=== PATIENT | male | born 1995 | race Caucasian/White ===

== ENCOUNTER 2019-12-20 17:02 | Outpatient (REF) | payer SELFPAY ==
[2019-12-26 00:58] LABS: SARS-CoV-2 RNA Undetected (Undetected); SARS-CoV-2 Specimen Source Nasal
== END 2019-12-20 17:22 ==
LOC: NCHCN 17:02
PROVIDERS: PCP Internal Medicine; Visit Provider Internal Medicine
DX: R05 Cough (principal); Z20.828 Contact with and (suspected) exposure to other viral communicable diseases
CPT/HCPCS: U0003

== ENCOUNTER → 2023-01-01 16:55 | Outpatient (CLI) | payer OTHER, SELFPAY ==
--- NOTE | 2023-01-01 14:24 | DI.RAD_ITS ---
Exam(s) XR WRIST LT COMPLETE EXAM: XR WRIST LT COMPLETE CLINICAL HISTORY: PAIN IN LT WRIST-[id number]. TECHNIQUE: 2D digital imaging was performed. Three views. COMPARISON: No exams were available for comparison FINDINGS: BONES: No acute fracture is present. No bony destructive lesion is seen. JOINTS: The carpal bones are normally aligned. SOFT TISSUE: Normal. IMPRESSION: Unremarkable radiographs of the left wrist. DATA REPOSITORY: RADIATION DOSE DELIVERED:
== END ==
PROVIDERS: PCP Internal Medicine; Visit Provider Nurse Practitioner Family
DX: M25.532 Pain in left wrist (principal)
CPT/HCPCS: 73110

== ENCOUNTER 2023-04-02 18:10 | Emergency (ER) | payer OTHER, SELFPAY ==
[2023-04-02 18:17] VITALS: BP 130/74; PULSE 84; RESP 16; TEMP 37; O2SAT 99
--- NOTE | 2023-04-02 18:30 | DI.RAD_ITS ---
Exam(s) XR SHOULDER RT COMPLETE 2+V XR HUMERUS RT EXAM: XR SHOULDER RT COMPLETE 2+V and XR humerus RT CLINICAL HISTORY: ran into tree snowboarding. TECHNIQUE: 2D digital imaging was performed of the right shoulder. Five images were obtained. AP, Grashey, Y-view and axillary views were obtained. COMPARISON: No priors for comparison. FINDINGS: BONES: No acute fracture is present. No bony destructive lesion is seen. JOINTS: No dislocation present. The glenohumeral and acromioclavicular joints are well maintained. SOFT TISSUE: The visualized lungs are clear. IMPRESSION: Unremarkable radiographs of the right humerus and shoulder. DATA REPOSITORY: RADIATION DOSE DELIVERED:
[2023-04-02] MEDS: Ketorolac 10 MG TAB PO (18:41)
[2023-04-02] MEDS: Lidocaine 5% Patch 1 PATCH TP (18:41)
[2023-04-02] MEDS: Cyclobenzaprine 10 MG TAB PO (18:41)
--- NOTE | 2023-04-02 18:47 | ED.GENADUL_ITS ---
HPI General Date/Time Provider Initiated Documentation: 04/02/23 18:27 . HPI Narrative: 28-year-old male presents after running into a tree with his right shoulder to avoid another ski year. Pain to shoulder, no head injury no chest no abdominal no back injury. Related Data Home Medications Medication Instructions Recorded Confirmed Unknown [No Known Home Meds] 01/01/23 Allergies Allergy/AdvReac Type Severity Reaction Status Date / Time No Known Allergies Allergy Verified 04/02/23 17:30 General Stated Complaint: Orthopedic CALREE: 3 Review of Systems Narrative: Review of Systems Constitutional: negative Eyes: negative ENT: negative Cardiovascular: negative Respiratory: negative Gastrointestinal: negative : negative Musculoskeletal: Right shoulder pain Skin: negative Neurologic: negative Psych: negative Exam Narrative Exam Narrative: Physical Examination General: alert, awake, cooperative, resting comfortably, no acute distress HEENT: normocephalic, atraumatic; PERRL, EOM intact, conjunctiva normal; no nasal discharge; moist mucous membranes, oral and pharyngeal mucosa normal, tolerating secretions Neck: supple, trachea midline; full ROM Chest: normal to inspection Respiratory: normal respiratory effort, speaking in full sentences Skin: no lesions, rashes or trauma appreciated Neuro: AAOx3, normal speech, moving all extremities Extremities: Tenderness over lateral and anterior aspect of right shoulder, glenoid full, no crepitus or deformity appreciated, range of motion of shoulder limited but does have partial extension and abduction intact, clavicle palpated no step-off deformity pain, full flexion and extension at elbow wrist fingers, median radial and ulnar nerve distribution intact, radial pulse intact, warm well-perfused extremity soft compartments Psych: Appropriate mood and affect Course Vital Signs Vital signs: Vital Signs Temperature 37.0 C 04/02/23 18:17 Pulse 84 04/02/23 18:17 Respiratory Rate 16 04/02/23 18:17 Blood Pressure 130/74 04/02/23 18:17 Pulse Oximetry 99 04/02/23 18:17 Temperature 37.0 C 04/02/23 18:17 Pulse 84 04/02/23 18:17 Respiratory Rate 16 04/02/23 18:17 Respiratory Effort Normal 04/02/23 18:19 Blood Pressure 130/74 04/02/23 18:17 Pulse Oximetry 99 04/02/23 18:17 Pain Level 4 04/02/23 18:19 Medical Decision Making 28-year-old male presents with right lateral shoulder discomfort after running into a tree while snowboarding, no evidence of cranial thoracic or abdominal trauma no back pain no other limb trauma, patient hemodynamically stable speaking full sentences alert oriented, range of motion of right shoulder limited by discomfort, otherwise neurovascular exam of limb is intact, consider shoulder contusion versus proximal humerus fracture versus distal clavicle fracture versus AC joint separation versus less likely shoulder dislocation versus rotator cuff injury; will obtain screening x-ray, analgesia anti- inflammatory close reassessment 19: 38 patient resting comfortably feeling better after medications. No evidence of fracture or dislocation. Likely component of soft tissue or bony contusion versus rotator cuff injury. Given home care instructions and return precautions. Quality:SDOH Health Related Social Needs: No Data to Display PFSH All Active Problems (Updated 04/02/23 @ 19:43 by Jesus Ibarra MD) Contusion of right shoulder (Acute) Social History Smoking/Tobacco Use Status: Never Smoking risk assessment performed?: Yes Alcohol Intake: current Alcohol Intake frequency: a few times a month Substance use type: does not use Do you feel safe at home: Yes Do you feel safe in your relationship?: Yes Discharge Plan Disposition Patient Disposition: Home Condition: Improving Discharge Details Chief Complaint: Orthopedic Clinical Impression: Contusion of right shoulder Primary Care Provider: Cecil Mathur ED Provider: Jesus Ibarra Home Meds and New Rx's Prescriptions: No Action No Known Home Meds Discharge Instructions Instructions: Rotator Cuff Injury (ED) Referrals: Micky Noonan MD [ [facility] STAFF PHYSICIAN] - (Call in one week if shoulder injury not improving with home management)
--- NOTE | 2023-04-02 19:22 | DI.VRAD_ITS ---
PROCEDURE INFORMATION: Exam: XR Right Shoulder Exam date and time: 04/02/2023 6:43 PM Age: 28 years old Clinical indication: Injury or trauma; Other: Ran into tree snowboarding TECHNIQUE: Imaging protocol: Radiologic exam of the right shoulder. Views: 2 or more views. COMPARISON: No relevant prior studies available. FINDINGS: Bones/joints: The joint spaces are maintained without degenerative changes. Osseous mineralization is normal. There are no inflammatory osseous erosive changes. The humeral head demonstrates normal contour and density. The subacromial space is maintained without focal calcification. There are no acute displaced fractures or subluxations. Soft tissues: Normal. IMPRESSION: No acute displaced fractures or subluxations are identified. Dictated and Authenticated by: Juanjo Alcantara MD. Ordering:BEENA Lee MD
--- NOTE | 2023-04-02 19:22 | DI.VRAD_ITS ---
PROCEDURE INFORMATION: Exam: XR Right Humerus Exam date and time: 04/02/2023 6:45 PM Age: 28 years old Clinical indication: Injury or trauma; Other: Ran into tree snowboarding TECHNIQUE: Imaging protocol: Radiologic exam of the right humerus. Views: 2 or more views. COMPARISON: CR XR SHOULDER RT COMPLETE 2+V 04/02/2023 6:43 PM FINDINGS: Bones/joints: There are no acute displaced fractures or subluxations. The joint spaces are maintained without degenerative changes. Osseous mineralization is normal. There are no inflammatory osseous erosive changes. The humeral head demonstrates normal contour and density. The subacromial space is maintained without focal calcification. Soft tissues: Normal. IMPRESSION: No acute displaced fractures or subluxations are identified. Dictated and Authenticated by: Juanjo Alcantara MD. Ordering:BEENA Lee MD
== END 2023-04-02 19:58 | disposition home or self-care (01) ==
PROVIDERS: Emergency Provider Emergency Medicine; PCP Internal Medicine
DX: S40.011A Contusion of right shoulder, initial encounter (principal); W22.8XXA Striking against or struck by other objects, initial encounter; Y93.23 Activity, snow (alpine) (downhill) skiing, snowboarding, sledding, tobogganing and snow tubing; Y92.838 Other recreation area as the place of occurrence of the external cause
CPT/HCPCS: 99283; 73030; 73060

== ENCOUNTER 2024-01-07 10:55 | Emergency (ER) | payer BC, SELFPAY ==
--- NOTE | 2024-01-07 10:45 | RT.EKG_ITS ---
APPROVED REPORT Exam: Resting ECG Reason for Exam: SOB, Dizzy Patient Location: E HR:78 bpm ECG Measurements Heart Rate 78 AXIS TN 198 P 64 QRSd 98 QRS 73 QT 340 T 55 QTc 388 Conclusion Sinus rhythm...normal P axis, V-rate 60- 99 Probable left atrial enlargement...P >50mS, <-0.10mV V1 ST elev, probable normal early repol pattern...ST elevation, age<55
[2024-01-07 10:58] VITALS: BP 145/96; PULSE 93; RESP 20; TEMP 36.3; O2SAT 99
[2024-01-07 11:00] VITALS: RESP 20
[2024-01-07] MEDS: LORazepam 1 MG TAB PO (11:40)
[2024-01-07] MEDS: Acetaminophen 325 MG TAB 650 MG PO (13:16)
--- NOTE | 2024-01-07 13:32 | DI.RAD_ITS ---
Exam(s) XR CHEST 2V PA LATERAL EXAM: XR CHEST 2V PA LATERAL CLINICAL HISTORY: chest pain after hyperventilating. TECHNIQUE: 2D digital imaging was performed. COMPARISON: No exams were available for comparison FINDINGS: 2 views: Heart size is normal. The mediastinum is not widened. Lungs are clear. No infiltrates nor pleural effusions. IMPRESSION: No acute pulmonary findings. DATA REPOSITORY: RADIATION DOSE DELIVERED:
--- NOTE | 2024-01-07 14:40 | ED.GENADUL_ITS ---
Discharge Plan Disposition Patient Disposition: Home Condition: Stable Discharge Details Clinical Impression: Panic attack Primary Care Provider: Cecil Mathur ED Provider: Gonzalez Hamilton Home Meds and New Rx's Prescriptions: No Action No Known Home Meds Discharge Instructions Instructions: Panic Attack ED Additional Instructions: Your blood pressure was slightly elevated today at 145/96. Be sure to discuss this with your primary care doctor. Please contact your primary care physician to arrange follow-up. Return to the ER immediately for any worsening or new concerning symptoms. Referrals: Cecil Mathur [Primary Care Provider] - Discharge Data Discharge Date/Time-TO BE ENTERED AT DEPARTURE: 01/07/24 14:48 HPI General Mode of arrival: ambulatory . Date/Time Provider Initiated Documentation: 01/07/24 11:29 . Limitations to Documentation: no limitations . Information obtained by: patient . HPI Narrative: 28-year-old male here with chief complaint of panic attack. Patient notes he learned of the of a friend earlier this morning and then experienced shortness of breath, dizziness, hyperventilation with tingling in his fingers and chest discomfort. Symptoms were severe. They are still present although improved. He has had history of anxiety in the past. No suicidal ideation. Related Data Home Medications ?Medication ?Instructions ?Recorded ?Confirmed Unknown [No Known Home Meds] 01/01/23 01/07/24 Allergies Allergy/AdvReac Type Severity Reaction Status Date / Time venom-honey bee Allergy Severe Anaphylaxis Verified 01/07/24 10:57 General Stated Complaint: Anxiety CARLEE: 4 Review of Systems All systems reviewed & are unremarkable except as noted in HPI and below Constitutional Constitutional: Denies fever(s) Cardiovascular Cardiovascular: Reports chest pain Exam Const General: cooperative HENMT Mouth: moist mucous membranes Eyes Conjunctivae: normal conjunctivae Neck Neck: trachea midline and supple Resp Auscultation: clear to auscultation bilaterally, no rales, no rhonchi and no wheezes Cardio Rate: regular rate and not tachycardic Rhythm: regular rhythm GI Palpation: soft, not firm, no guarding, no masses, not rigid and nontender Skin General skin exam: no rashes or lesions noted Neuro General: patient alert, patient awake and tone normal Extrem General: no calf tenderness and no edema Psych Appearance: grossly normal Mental Status: mental status grossly normal Mood: anxious mood Affect: anxious affect Course Vital Signs Vital signs: Vital Signs Temperature 36.3 C L 01/07/24 10:58 Pulse 93 H 01/07/24 10:58 Respiratory Rate 20 01/07/24 10:58 Blood Pressure 145/96 H 01/07/24 10:58 Pulse Oximetry 99 01/07/24 10:58 Temperature 36.3 C L 01/07/24 10:58 Temperature Source Skin 01/07/24 10:58 Pulse 93 H 01/07/24 10:58 Respiratory Rate 20 01/07/24 11:00 Respiratory Effort Normal, Non-Labored 01/07/24 11:00 Respiratory Depth Normal 01/07/24 11:00 Respiratory Pattern Normal 01/07/24 11:00 Blood Pressure 145/96 H 01/07/24 10:58 Blood Pressure Position Sitting 01/07/24 10:58 Pulse Oximetry 99 01/07/24 10:58 Oxygen Delivery Method Room Air 01/07/24 10:58 Oxygen Flow Rate 0 01/07/24 10:58 Pain Level 0 01/07/24 10:58 Medical Decision Making 28-year-old male here with panic attack after hearing of the of a friend. Patient does have chest discomfort after hyperventilatory episode. He saturating well in no respiratory distress. Lorazepam 1 mg given for anxiety. Acetaminophen given for discomfort. Screening EKG was reviewed and interpreted by me: Please report, sinus rhythm at 78 bpm, benign early repull with no STEMI Considered pneumothorax. Chest x-ray was reviewed and interpreted by radiology: No acute pathology. Patient reassessed and improved after angiolytic. Plan for discharge with outpatient follow-up. Usual and customary discharge instructions were reviewed. Quality:SDOH Health Related Social Needs: No Data to Display PFSH All Active Problems Panic attack (Acute) Social History Smoking/Tobacco Use Status: Never Smoking risk assessment performed?: Yes Alcohol Intake: current Alcohol Intake frequency: a few times a month Drug use: Never Substance use type: does not use Housing: house Do you feel safe at home: Yes Do you feel safe in your relationship?: Yes
[2024-01-07 14:45] VITALS: BP 153/81; PULSE 97; RESP 18; O2SAT 98
== END 2024-01-07 14:48 | disposition home or self-care (01) ==
PROVIDERS: Emergency Provider Student in an Organized Health Care Education/Training Program; PCP Internal Medicine
DX: F41.0 Panic disorder [episodic paroxysmal anxiety] (principal); R94.31 Abnormal electrocardiogram [ECG] [EKG]
CPT/HCPCS: 93005; 99284; 71046; 93010

== ENCOUNTER 2024-07-01 10:27 | Emergency (ER) | payer BC, SELFPAY ==
[2024-07-01] VITALS (20 sets, daily range): BP systolic 124–147; BP diastolic 80–100; PULSE 50–78; RESP 16; TEMP 36.8; O2SAT 96–100
--- NOTE | 2024-07-01 10:50 | ED.GENADUL_ITS ---
Discharge Plan Disposition Patient Disposition: Home Discharge Details Clinical Impression: Allergic reaction Primary Care Provider: Cecil Mathur ED Provider: Manav Barrientos Home Meds and New Rx's Prescriptions: New prednisone 20 mg tablet 40 mg PO DAILY 5 Days Qty: 10 0RF Discharge Instructions Instructions: Allergic Reaction ED Additional Instructions: It appears you had an allergic reaction to an insect bite or sting last night. You have responded well to IV Pepcid, Benadryl, and steroids. No need to use any epinephrine. I will provide you a prescription of a burst dose of oral steroids, please take as directed. During this time I recommend you take [id number] Benadryl and Pepcid as well. Watch for evolving symptoms and use the EpiPen if necessary. Lastly watch for new or worsening symptoms and return immediately to the ER. Otherwise I recommend reaching out to your primary care provider to make them aware of your ER visit and need for outpatient reevaluation. HPI General Mode of arrival: ambulatory . Date/Time Provider Initiated Documentation: 07/01/24 10:38 . Limitations to Documentation: no limitations . Information obtained by: patient . History of Present Illness 29 year old M presents to the emergency department with the chief complaint of Allergic reaction, described as moderate, with intensity rated at 7. Quality is described as other (No pain, altered voice, swelling), and is localized to the mouth (Throat). Patient reports no radiation. Patient started experiencing this hour(s) (14) and it has been constant. No relieving factors improve symptom(s), No exacerbating factors reported . Patient notes shortness of breath. Patient did receive the following treatments prior to arrival, other (Benadryl 2 doses yesterday, 1 dose 3:30 AM, 1 dose around 930 this morning) R elated Data Home Medications ?Medication ?Instructions ?Recorded ?Confirmed prednisone 20 mg tablet 40 mg (2 x 20 mg) PO DAILY 5 days 07/01/24 #10 tabs Previous Rx's ?Medication ?Instructions ?Recorded prednisone 20 mg tablet 40 mg (2 x 20 mg) PO DAILY 5 days 07/01/24 #10 tabs Allergies Allergy/AdvReac Type Severity Reaction Status Date / Time venom-honey bee Allergy Severe Anaphylaxis Verified 07/01/24 10:34 General Stated Complaint: Allergic CARLEE: 4 Review of Systems Constitutional Constitutional: Denies fever(s), Denies headache(s) and Denies weakness Eyes Eyes: Denies itchy eyes ENT Ears, Nose, Mouth, and Throat: Denies headache(s), Denies lip swelling, Reports throat swelling and Denies tongue swelling Cardiovascular Cardiovascular: Denies chest pain and Reports dyspnea Respiratory Respiratory: Denies cough, Reports dyspnea and Denies wheezing Gastrointestinal Gastrointestinal: Denies abdominal pain, Denies nausea and Denies vomiting Musculoskeletal Musculoskeletal: Denies numbness and Denies tingling Integumentary/Breasts Skin/Breast: Denies rash Neurologic Neurologic: Denies headache(s), Denies numbness, Denies tingling and Denies weakness Allergic/Immunologic Allergic/Immunologic: Denies urticaria, Denies itchy eyes, Denies lip swelling, Reports throat swelling, Denies tongue swelling and Denies wheezing Exam Const General: cooperative, healthy appearing, comfortable and no acute distress Orientation: alert, awake and oriented [facility]: normal to inspection, normocephalic and atraumatic General nose exam: external nose normal Face and sinus: normal facial exam Mouth: oral mucosae normal, lip normal, oropharynx normal and moist mucous membranes Throat: posterior oropharynx normal Eyes General: appearance normal, both eyes and all related structures Conjunctivae: conjunctivae normal Neck Neck: normal visual inspection, full ROM, trachea midline and supple Resp Effort & Inspection: normal respiratory effort and able to speak in complete sentences Auscultation: clear to auscultation bilaterally Cardio Rate: regular rate Rhythm: regular rhythm GI Palpation: soft and nontender Skin General skin exam: other (No rash) Full body images: 2 1. Pinpoint area of erythema consistent with an insect sting or bite. No stinger visualized. Neuro General: patient alert, patient awake, patient oriented x3, moves all extremities and no focal motor deficits Cognition: normal cognition Speech: speech normal Gait: normal gait Motor: muscle tone normal throughout Sensory Exam: no sensory deficits noted Extrem General: normal to inspection (Other than insect bite as described above), full ROM and capillary refill normal Psych Appearance: grossly normal Mental Status: mental status grossly normal Course Vital Signs Vital signs: Vital Signs Temperature 36.8 C 07/01/24 10:30 Pulse 78 07/01/24 10:30 Respiratory Rate 16 07/01/24 10:30 Blood Pressure 133/90 07/01/24 10:30 Pulse Oximetry 96 07/01/24 10:30 Temperature 36.8 C 07/01/24 10:30 Temperature Source Oral 07/01/24 10:30 Pulse 78 07/01/24 10:30 Respiratory Rate 16 07/01/24 10:30 Respiratory Effort Normal 07/01/24 10:41 Respiratory Pattern Normal 07/01/24 10:41 Blood Pressure 133/90 07/01/24 10:30 Pulse Oximetry 96 07/01/24 10:30 Oxygen Delivery Method Room Air 07/01/24 10:30 Oxygen Flow Rate 0 07/01/24 10:30 Pain Level 4 07/01/24 10:30 Medical Decision Making 29-year-old male with insect sting/bite, unsure of what kind, last night around 830. 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 He has never had to use his EpiPen. Gradually he developed a strange sensation while swallowing and maybe a small amount of shortness of breath. Denies mouth or tongue swelling. Denies cough, wheezing, evidence of hives. Clinically he appears well, nontoxic, airway patent, speaking in full sentences, hemodynamically stable. Will obtain IV access, give IV fluid, Pepcid, Benadryl, and Solu-Medrol and plan to observe. At this time I do not believe he requires any subcu epinephrine. The patient was observed for over 2-1/2 hours with multiple reevaluations. He reported feeling significantly better. He was drinking water without any straining sensation in his throat. Denies any shortness of breath. No epinephrine necessary. No evidence of anaphylaxis. Patient is comfortable being discharged in his current condition. Plan to provide a prescription of burst dose steroids for the next 5 days. He is encouraged to take [id number] Pepcid and Benadryl as directed. He already has an EpiPen to use for evolving symptoms. Encouraged to watch for new or worsening symptoms and return immediately to the ER. Otherwise he will reach out to his primary care provider to make him aware of his ER visit and need for outpatient reevaluation. Standard discharge and return precautions were provided. Patient understands, is agreeable to this plan, and has no additional questions or concerns upon discharge. This documentation was generated using Seesmication system, please disregard any oddities of phrase or misspellings. Medical Records Medical records reviewed: Yes I reviewed the patient's medical records. Quality:SDOH Health Related Social Needs: 2 No Data to Display PFSH All Active Problems (Updated 07/01/24 @ 13:11 by REESE Skinner) Allergic reaction (Acute) Social History Smoking/Tobacco Use Status: Never Smoking risk assessment performed?: Yes Alcohol Intake: current Alcohol Intake frequency: a few times a month Drug use: Never Substance use type: does not use Housing: house Do you feel safe at home: Yes Do you feel safe in your relationship?: Yes
[2024-07-01] MEDS: Normal Saline 1,000 ML 1000 ML IV (11:05)
[2024-07-01] MEDS: FAMOTIDINE 20 MG/50 ML BAG 200 MG IVPB (11:06)
[2024-07-01] MEDS: diphenhydrAMINE 50 MG/ML VIAL IVP (11:06)
[2024-07-01] MEDS: methylPREDNISolone SUCC 125 MG VIAL IVP (11:06)
== END 2024-07-01 13:20 | disposition home or self-care (01) ==
PROVIDERS: Emergency Provider Physician Assistant; PCP Internal Medicine
DX: T78.40XA Allergy, unspecified, initial encounter (principal)
CPT/HCPCS: 99283; 99284; 96374; 96375; 96361; J1200; J2919